=== PATIENT | male | born 1950 | race Caucasian/White ===

== ENCOUNTER 2017-01-21 06:24 | Day surgery (SDC) | payer OTHER ==
[~2017-01-21] VITALS: Ht 175.3 cm; Wt 102.1 kg
[~2017-01-21 06:24] MED LIST: ANASPAZ0.125 MG PO; LO-DOSE ASPIRIN81 M1 PO; OMEPRAZOLE40 M1 PO; ZESTRIL10 MG PO; ZOCOR20 MG PO
[2017-01-21 07:26] VITALS: BP 131/66
[2017-01-21] MEDS ORDERED: NORCO 5/3251 TABLET PO (09:49)
[2017-01-21 10:55] VITALS: BP 163/84
[2017-01-21 11:55] VITALS: BP 137/69
== END 2017-01-21 12:06 | disposition home or self-care (01) ==
LOC: SDC 06:24
DX: K81.1 Chronic cholecystitis (principal); K42.9 Umbilical hernia without obstruction or gangrene; K74.60 Unspecified cirrhosis of liver; E78.00 Pure hypercholesterolemia, unspecified; I10 Essential (primary) hypertension; Z79.82 Long term (current) use of aspirin; Z80.0 Family history of malignant neoplasm of digestive organs; Z82.49 Family history of ischemic heart disease and other diseases of the circulatory system
CPT/HCPCS: 88302; 88304; J0131; J1100; J1170; J2250; J2405; J2710; J3010